=== PATIENT | female | born 1965 | race American Indian/Alaskan Native ===

== ENCOUNTER 2018-01-10 21:31 | Emergency (ER) | payer OTHER ==
[2018-01-10] MEDS ORDERED: DILAUDID IV ONE (21:39)
[2018-01-10] MEDS ORDERED: ZOFRAN IV ONE (21:39)
[2018-01-10] MEDS ORDERED: NACL 0.9% 1000 ML 1,000 ML IV ONE ×2 (21:40→23:08)
[2018-01-10] MEDS ORDERED: BOOSTRIX IM ONE (21:40)
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
[2018-01-10 22:05] LABS: Hematocrit 41.5 % (30.3-42.9); Hemoglobin 14.4 gm/dl (10.1-14.3); Mean Corpuscular HGB Conc 35 % (30-34); Mean Corpuscular Hemoglobin 32 pg (28-32); Mean Corpuscular Volume 93 fl (79-97); Platelet Count 331 K/mm3 (140-440); Red Blood Count 4.47 M/mm3 (3.65-5.03); Red Cell Distribution Width 13.4 % (13.2-15.2)
[2018-01-10 22:10] LABS: BUN/Creatinine Ratio 14; Blood Urea Nitrogen 11 mg/dL (7-17); Calcium 8.8 mg/dL (8.4-10.2); Hemolysis Index 19
[2018-01-10] MEDS ORDERED: TORADOL IV ONE (22:12)
[2018-01-10 22:49] VITALS: BP 147/78
== END 2018-01-10 23:24 | disposition other institution (70) ==
LOC: ED 21:31
DX: T24.212A Burn of second degree of left thigh, initial encounter (principal); T24.211A Burn of second degree of right thigh, initial encounter; T21.27XA Burn of second degree of female genital region, initial encounter; T21.21XA Burn of second degree of chest wall, initial encounter; T22.20XA Burn of second degree of shoulder and upper limb, except wrist and hand, unspecified site, initial encounter; T31.0 Burns involving less than 10% of body surface; X12.XXXA Contact with other hot fluids, initial encounter; Y93.89 Activity, other specified; Y99.8 Other external cause status; Y92.89 Other specified places as the place of occurrence of the external cause
CPT/HCPCS: 36415; 80048; 85027; 90471; 90715; 96361; 96374; 96375; 99285; J1170; J1885; J2405; J7030